=== PATIENT | female | born 1985 | race Caucasian/White ===

== ENCOUNTER 2020-05-03 15:52 | Emergency (ER) | payer OTHER ==
[~2020-05-03] VITALS: Ht 170.1 cm; Wt 72.6 kg
[~2020-05-03 15:52] MED LIST: CLARITIN10 MG PO; COMBIVENT1 ARO IH; MEDROL DOSEPAK4 MG PO; MOTRIN600 MG PO; TRAMADOL HCL50 MG PO; VICODIN ES 7501 TAB PO; ZITHROMAX Z PA250 MG PO
[2020-05-03 18:35] LABS: BILIRUBIN Negative (Negative); BLOOD Negative (Negative); CLARITY Clear (Clear); COLOR Yellow (Yellow); GLUCOSE Negative (Negative); KETONE Trace (Negative); LEUKO ESTERASE Trace (Negative); NITRITE Negative (Negative); PH 5.5 (4.5-8.0); SPECIFIC GRAVITY 1.025 (1.001-1.030); UROBILINOGEN 0.2 E.U./dl (0.0-1.0)
[2020-05-03 18:44] LABS: BACTERIA TRACE; RBC 0-2 rbc/hpf (0-2)
[2020-05-03] MEDS ORDERED: CYCLOBENZAPRINE10 MG PO (19:16)
[2020-05-03] MEDS ORDERED: NAPROXEN250 MG PO (19:16)
[2020-05-03] MEDS ORDERED: TYLENOL325 M1 PO (19:16)
== END 2020-05-03 19:43 | disposition home or self-care (01) ==
LOC: ED 15:52
PROVIDERS: Emergency Medicine
DX: M54.6 Pain in thoracic spine (principal); Z91.040 Latex allergy status

== ENCOUNTER → 2025-02-24 | Outpatient (CLI) | payer OTHER ==
[~2025-02-24] MED LIST changes: +CYCLOBENZAPRINE10 MG PO; +NAPROXEN250 MG PO; +TYLENOL325 M1 PO
== END | disposition home or self-care (01) ==
LOC: US 08:11
PROVIDERS: ATTEND Nurse Practitioner
DX: M25.852 Other specified joint disorders, left hip (principal)